=== PATIENT | female | born 2005 | race Caucasian/White ===

== ENCOUNTER 2024-09-16 11:24 | Emergency (ER) | payer MEDICAID, SELFPAY ==
[2024-09-16 11:49] VITALS: BP 136/81; PULSE 99; RESP 18; TEMP 36.9; O2SAT 100; BMI 16.1
--- NOTE | 2024-09-16 11:51 | XR_ITS ---
Examination: Abdomen sonogram, Limited Date and time of exam: September 16, 2024 1313 hours INDICATIONS: Epigastric pain today with fever Technique: Real-time middleton scale transabdominal sonographic images of the upper abdomen obtained. Findings: 6 mm, 7 mm gallstones Contracted gallbladder gallbladder wall 0.2 cm Common bile duct 0.4 exam Pancreatic head 1.5 cm 13.5 cm no focal liver lesions Normal hepatopedal portal venous flow Patent IVC IMPRESSION: Cholelithiasis, negative for cholecystitis
--- NOTE | 2024-09-16 11:51 | XR_ITS ---
Examination: Abdomen AP single view Technique: AP portable supine abdomen, single view Exam date and time: September 16, 2024 1248 hours INDICATIONS: Onset abdominal pain today. FINDINGS: Moderate to large amounts of stool throughout the colon No obstruction No free air IMPRESSION: Moderate to large amounts of stool throughout the colon
--- NOTE | 2024-09-16 11:51 | PD.EDRME ---
Rapid Medical Screening Exam RME Arrival date/time: 09/16/24 11:24 19-year-old female presents to the emergency department complains of abdominal pain Chief Complaint: Abdominal Pain Vital signs: Vital Signs Respiratory Rate 18 09/16/24 11:49 Oxygen Delivery Method Room Air 09/16/24 11:49
[2024-09-16 12:36] LABS: Basophils % (Auto) 0 % (0-2.5); Eosinophils # (Auto) 0.2 Thou/mm3 (0.0-0.5); Eosinophils % (Auto) 2 % (0-10); Hematocrit 40.5 % (36.0-46.0); Hemoglobin 13.2 g/dL (12.0-16.0); Immature Granulocytes % (Auto) 0 % (0-0); Immature Granulocytes Auto 0.01 Thou/mm3 (0.00-0.00); Lymphocytes # (Auto) 2.7 Thou/mm3 (1.0-4.8); Lymphocytes % (Auto) 37 % (10-50); Mean Corpuscular HGB Conc 32.6 g/dl (31.0-37.0); Mean Corpuscular Hemoglobin 30.3 pg (25.0-35.0); Mean Corpuscular Volume 93 fL (80-100); Monocytes # (Auto) 0.5 Thou/mm3 (0.0-0.8); Monocytes % (Auto) 6 % (0-12); Neutrophils # (Auto) 3.9 Thou/mm3 (1.8-7.7); Neutrophils % (Auto) 54 % (37-80); Nucleated Red Blood Cell % 0 /100 WBC (0); Platelet Count 403 Thou/mm3 (140-440); RDW Standard Deviation 43.4 fL (36.4-46.3); Red Blood Count 4.36 Miln/mm3 (4.00-5.20); White Blood Count 7.3 Thou/mm3 (4.5-11.0)
[2024-09-16 12:56] LABS: Alanine Aminotransferase 20 U/L (10-49); Albumin, Serum 4.5 gm/dL (3.5-5.0); Albumin/Globulin Ratio 1.6 (1.2-2.2); Alkaline Phosphatase 63 U/L (46-116); Anion Gap 10 (7-16); Aspartate Amino Transferase 17 U/L (0-34); BUN/Creatinine Ratio 10 Ratio (12-20); Bilirubin,Total 1.2 mg/dL (0.3-1.2); Blood Urea Nitrogen 7 mg/dL (9-23); Calcium 9.4 mg/dL (8.3-10.6); Calcium (Corrected) 9.4 mg/dL (8.5-10.1); Carbon Dioxide 24.5 mMol/L (20.0-31.0); Chloride 106 mMol/L (98-107); Creatinine (Component) 0.7 mg/dL (0.6-1.3); Estimated Creatinine Clearance 91.8 mL/min (>60); Globulin 2.9 gm/dL (2.3-3.5); Glucose 83 mg/dL (74-106); Lipase 36 U/L (12-53); Osmolality,Calculated 276 (275-295); Potassium 3.7 mMol/L (3.4-5.1); Sodium 140 mMol/L (136-145); Total Protein 7.4 gm/dL (5.7-8.2); eGFR > 60 See Note
[2024-09-16 13:09] LABS: Collection Type, Urine Clean Catch
[2024-09-16 13:19] LABS: HCG Qualitative,Urine Negative
[2024-09-16 13:28] LABS: Bacteria,Urine Rare; Bilirubin,Urine Negative (Negative); Blood,Urine Negative (Negative); Clarity,Urine Clear (Clear/Hazy); Color,Urine Lt-Yellow (Lt Yel-Yel); Culture Indicated,Urine Not Indicated; Glucose, Urine Negative (Negative); Ketones,Urine Negative (Negative); Leukocyte Esterase,Urine Negative (Negative); Nitrite,Urine Negative (Negative); PH,Urine 6.5 (5.0-7.0); Protein,Urine Negative (Neg - Trace); RBC,Urine 2 /hpf (0-3); Specific Gravity,Urine 1.017 (1.001-1.035); Squamous Epithelial Cell,Urine 5 /hpf (0-5); Urobilinogen,Urine Negative mg/dL (0.0-1.0); WBC,Urine < 1 /hpf (0-5)
--- NOTE | 2024-09-16 14:25 | EDNOTE_ITS ---
ED Abdominal Pain RME/HPI General Chief Complaint: Abdominal Pain Stated complaint: R) ABD PAIN RADIATING TO SHOULDER, SOB, FEVER Time seen by provider: 09/16/24 14:21 Arrival date/time: 09/16/24 11:24 19-year-old female presents to the emergency department complains of abdominal pain Limitations: no limitations RME / HPI RME / HPI narrative: 09/16/24 11:24 19-year-old female presents to the emergency department complains of abdominal pain Related Data Home Medications ?Medication ?Instructions ?Recorded ?Confirmed vits no.130-ferrous fum 1 tab PO DAILY 07/04/23 27 mg iron-folic acid 800 mcg tablet ( Vitamin) Previous Rx's ?Medication ?Instructions ?Recorded acetaminophen 300 mg-codeine 15 mg 1 tab PO Q12H PRN p ain #14 tabs 07/07/23 tablet acetaminophen 500 mg tablet 500 mg PO Q6H PRN pain #30 tabs 07/07/23 ibuprofen 800 mg tablet 800 mg PO Q8H PRN pain #30 t abs 07/07/23 docusate sodium 100 mg capsule 100 mg PO QDAY #20 caps 03/01/24 (Colace) docusate sodium 100 mg capsule 100 mg PO BID 7 days #1 4 caps 09/16/24 ibuprofen 600 mg tablet 600 mg PO Q6H #30 tabs 09/16 polyethylene glycol 3350 17 17 g PO QDAY 3 days #119 g carmelo 09/16/24 gram/dose oral powder (Miralax) Allergies Allergy/AdvReac Type Severity Reaction Status Date / Time No Known Allergies Allergy Verified 09/16/24 11:28 Review of Systems Review of Systems Systems Reviewed: All systems reviewed, normal except as documented Constitutional Constitutional: Reports system reviewed and no additional complaints, except as documented, Denies fever(s) and Denies headache(s) Eyes Eyes: Reports system reviewed and no additional complaints, except as documented and Denies blurry vision ENT Ears, Nose, Mouth, and Throat: Reports system reviewed and no additional complaints, except as documented, Denies headache(s), Denies nasal congestion and Denies nasal discharge Cardiovascular Cardiovascular: Reports system reviewed and no additional complaints, except as documented, Denies chest pain and Denies dyspnea Respiratory Respiratory: Reports system reviewed and no additional complaints, except as d ocumented, Denies chest congestion, Denies cough and Denies dyspnea Gastrointestinal Gastrointestinal: Reports system reviewed and no additional complaints, except as documented and Reports abdominal pain Integumentary/Breasts Skin/Breast: Reports system reviewed and no additional complaints, except as documented and Denies rash Neurologic Neurologic: Reports system reviewed and no additional complaints, except as documented, Reports as per HPI and Denies headache(s) Past Medical History Past Medical History NEUROLOGIC: Negative Neurological Disorders CARDIAC: Negative Cardiac Disorders or Congestive Heart Failure RESPIRATORY: Negative Chronic Obstructive Pulmonary Disease (COPD) or Asthma GASTROINTESTINAL: Negative Gastrointestinal Disorders or Hepatitis GENITOURINARY: Positive Genitourinary Disorders (HX OF UTI.); Negative Renal Disease REPRODUCTIVE: Negative Genital Herpes, Gonorrhea or Syphilis MUSCULOSKELETAL: Negative Musculoskeletal Disorders ENDOCRINE: Negative Endocrine Disorders, Diabetes Mellitus Type 1 or Diabetes Mellitus Type 2 HEMATOLOGIC: Negative Blood Disorders, Anemia, Leukemia, Hemophilia, Thalassemia, Sickle Cell Disease or Clotting Problems PSYCHO/SOCIAL: Positive Anxiety (NO MEDS.) OTHER HISTORY: Positive Chicken Pox; Negative Hospitalization, Autoimmune Disease, Down Syndrome, Developmental Delay, Shingles, Falls, Blood Transfusions, Blood Transfusion Reaction, Anesthesia Reactions, Organ Transplant, Chemotherapy, Radiation Therapy, Hyperbaric Therapy, MRSA, VRSA, Vancomycin-Resistant Enterococci, Human Immunodeficiency Virus (HIV), Measles, Mumps, Rubella (Frisian Measles), Pertussis, Clostridium Difficile or Cancer Family History FAMILY HISTORY: Negative Family Psychiatric Problems, Family Respiratory Disorders, Family Cardiac Disorders, Family Gastrointestinal Problems, Family Cancer, Family Surgery or Family Anesthesia Reaction Surgical History SURGICAL: Negative Organ Transplant Social History SMOKING STATUS: Never smoker SECOND HAND EXPOSURE: No ED Exam General Limitations: Present no limitations General appearance: Present alert and in no apparent distress Head Head exam: Present atraumatic, normocephalic and normal inspection Eye Eye exam: Present normal appearance, PERRL and EOMI; Absent conjunctival injection ENT ENT exam: Present normal exam, normal oropharynx and mucous membranes moist Neck Neck exam: Present normal inspection, full ROM and trachea midline Chest Chest inspection: Present normal inspection and symmetric chest wall rise Respiratory Respiratory exam: Present normal lung sounds bilaterally; Absent respiratory distress or wheezes Cardiovascular Cardiovascular exam: Present regular rate, normal rhythm and normal heart sounds Abdominal Exam Abdominal exam: Present soft and normal bowel sounds; Absent distention, tenderness, guarding, rebound or rigidity Extremities Exam Extremities exam: Present normal inspection and full ROM Back Exam Back exam: Present normal inspection and full ROM Neurological Exam Neurological exam: Present alert, oriented X3 and CN II-XII intact Psychiatric Psychiatric exam: Present normal affect and normal mood Skin Skin exam: Present warm, dry, intact and normal color Course Quality Measures none Orders Category Date Time Status US gall bladder Stat Exams 09/16/24 11:51 Completed XR abdomen 1V Stat Exams 09/16/24 11:51 Completed CBC Stat Lab 09/16/24 11:56 Completed Comprehensive Metabolic Panel Stat Lab 09/16/24 11:56 Completed HCG Qualitative,Urine Stat Lab 09/16/24 12:48 Completed Lipase Stat Lab 09/16/24 11:56 Completed UA, C/S IF [Urinalysis, C/S if Indicated] Stat Lab 09/16/24 12:48 Completed Vital Signs Vital signs: Vital Signs Temperature 98.4 F 09/16/24 11:49 Pulse Rate 99 09/16/24 11:49 Respiratory Rate 18 09/16/24 11:49 Blood Pressure 136/81 H 09/16/24 11:49 Pulse Oximetry (%) 100 09/16/24 11:49 Oxygen Delivery Method Room Air 09/16/24 11:49 O2 saturation 100% r/ wnl Abdominal Pain MDM MDM Narrative MDM Narrative:: 19-year-old female presents to the emergency department complains of abdominal pain Clinically patient well-appearing patient does not appear ill or toxic Patient shares that she has been constipated. Lab work as well as ultrasound obtained and imaging x-ray of the abdomen X-ray of the abdomen obtained which confirms cholelithiasis without cholecystitis X-ray of the abdomen shows patient has constipation Patient struck to use fleets enema at home patient given a prescription for Dulcolax as well as MiraLAX Lab work unremarkable Patient discharged home in no distress to follow-up with primary care doctor in the next 24 to 48 hours and for any worsening symptoms to return to the ER immediately Patient data External records reviewed:: [facility] previous records Clinical information provided by:: patient Social determinants that could affect healthcare access:: none Patient has the following chronic illnesses:: See history How is presenting disease/condition affected by chronic disease/condition?: caused by Evaluation data The following diagnostics were reviewed and interpreted by me:: lab results and radiology exam(s) Lab and/or radiology exams considered but not ordered:: Labs radiology obtain Interpretation Summary: Reviewed by me Medications / Prescriptions Medications or Prescriptions considered but not ordered:: Given Medication administrations:: Given Consultations Consultation(s) initiated? (list below): No Diagnosis Differential diagnosis abdominal pain: abdominal pain, pancreatitis and small bowel obstruction Most likely diagnosis given after review of the tests above:: Abdominal pain Admission Indicated Admission indicated?: not indicated Admission Request Was there a request for admission?: No Disposition Plan Disposition Plan: Discharge Discharge Attestation Discharge Attestation: The patient and all family members were given an opportunity to ask questions and understood the discharge instructions. Discharge instructions specifically effects, indications for sooner follow up or return to the emergency department, and the expected course of current diagnosis. Patient condition: Stable Discharge Plan Plan Patient Disposition: HOME (Self Care) Disposition Comment: Stable Prescriptions/Referrals Prescriptions/Med Rec: New ibuprofen 600 mg tablet 600 mg PO Q6H Qty: 30 0RF docusate sodium 100 mg capsule 100 mg PO BID 7 Days Qty: 14 0RF polyethylene glycol 3350 [Miralax] 17 gram/dose powder 17 g PO QDAY 3 Days Qty: 119 0RF No Action acetaminophen-codeine 300-15 mg tablet 1 tab PO Q12H PRN (Reason: pain) Qty: 14 0RF ibuprofen 800 mg tablet 800 mg PO Q8H PRN (Reason: pain) Qty: 30 0RF acetaminophen 500 mg tablet 500 mg PO Q6H PRN (Reason: pain) Qty: 30 0RF Vitamin 27 mg iron- 800 mcg tablet 1 tab PO DAILY docusate sodium [Colace] 100 mg capsule 100 mg PO QDAY Qty: 20 0RF Referrals: No Primary/Family,Physician [Primary Care Provider] - In 1 week Problem List Clinical Impression: Constipation, Cholelithiasis Patient/Caregiver Discharge Instructions Education Materials: Treating Gallstones Additional Instructions: Please follow up with your primary care doctor in the next 24-48hrs for any worsening symptoms return here immediately Print Language: Belarusian Stand Alone Forms: Jesika Award Info., Patient Portal Info Letter PA/[employer] Supervising Physician PA/[employer] Supervising Physician: Dr. qiu
== END 2024-09-16 14:40 | disposition home or self-care (01) ==
PROVIDERS: Nurse Practitioner Primary Care; Emergency Provider Family Medicine
DX: K59.00 Constipation, unspecified (principal); K80.20 Calculus of gallbladder without cholecystitis without obstruction
CPT/HCPCS: 36415; 74018; 76705; 80053; 81001; 81025; 83690; 85025; 99284

== ENCOUNTER 2025-06-30 15:27 | Emergency (ER) | payer MEDICAID, SELFPAY ==
[2025-06-30 15:28] VITALS: BMI 19.2
[2025-06-30 15:36] VITALS: BP 103/64; PULSE 105; RESP 18; TEMP 37.6; O2SAT 98; BMI 19.2
--- NOTE | 2025-06-30 15:37 | PD.EDDENTL ---
ED Dental RME/HPI General Chief complaint: Dental/Oral/Throat Stated complaint: INFECTION TO THROAT X3DAYS Time Seen by Provider: 06/30/25 15:31 Arrival date/time: 06/30/25 15:27 20-year-old female presents to the Emergency Department for complaints of throat infection x 3 days patient reports pain with swallowing patient reports no chance of Limitations: no limitations Related Data Home Medications ?Medication ?Instructions ?Recorded ?Confirmed vits no.130-ferrous fum 1 tab PO DAILY 07/03/23 07/04/23 27 mg iron-folic acid 800 mcg tablet ( Vitamin) Previous Rx's ?Medication ?Instructions ?Recorded acetaminophen 300 mg-codeine 15 mg 1 tab PO Q12H PRN pain #14 tabs 07/07/23 tablet acetaminophen 500 mg tablet 500 mg PO Q6H PRN pain #30 tabs 07/07/23 ibuprofen 800 mg tablet 800 mg PO Q8H PRN pain #30 tabs 07/07/23 docusate sodium 100 mg capsule 100 mg PO QDAY #20 caps 03/01/24 (Colace) ibuprofen 600 mg tablet 600 mg PO Q6H #30 tabs 09/16/24 amoxicillin 875 mg-potassium 1 tab PO BID 10 days #20 tabs 06/30/25 clavulanate 125 mg tablet ibuprofen 600 mg tablet 600 mg PO Q6H #30 tabs 06/30/25 Allergies Allergy/AdvReac Type Severity Reaction Status Date / Time No Known Allergies Allergy Verified 06/30/25 15:31 Review of Systems Review of Systems Systems Reviewed: All systems reviewed, normal except as documented Constitutional Constitutional: Reports system reviewed and no additional complaints, except as documented, Denies fever(s) and Denies headache(s) Eyes Eyes: Reports system reviewed and no additional complaints, except as documented and Denies blurry vision ENT Ears, Nose, Mouth, and Throat: Reports system reviewed and no additional complaints, except as documented, Denies headache(s), Denies nasal congestion, Denies nasal discharge and Reports sore throat Cardiovascular Cardiovascular: Reports system reviewed and no additional complaints, except as documented, Denies chest pain and Denies dyspnea Respiratory Respiratory: Reports system reviewed and no additional complaints, except as documented, Denies chest congestion, Denies cough and Denies dyspnea Gastrointestinal Gastrointestinal: Reports system reviewed and no additional complaints, except as documented and Denies abdominal pain Integumentary/Breasts Skin/Breast: Reports system reviewed and no additional complaints, except as documented and Denies rash Neurologic Neurologic: Reports system reviewed and no additional complaints, except as documented, Reports as per HPI and Denies headache(s) ED Exam General Limitations: Present no limitations General appearance: Present alert and in no apparent distress Head Head exam: Present atraumatic, normocephalic and normal inspection Eye Eye exam: Present normal appearance, PERRL and EOMI ENT ENT exam: Present mucous membranes moist Expanded ENT Exam Throat exam: Present tonsillar erythema, tonsillomegaly and tonsillar exudate; Absent R peritonsillar mass, L peritonsillar mass or muffled voice Neck Neck exam: Present normal inspection, full ROM and trachea midline Chest Chest inspection: Present normal inspection and symmetric chest wall rise Respiratory Respiratory exam: Present normal lung sounds bilaterally Cardiovascular Cardiovascular exam: Present regular rate, normal rhythm and normal heart sounds Abdominal Exam Abdominal exam: Present soft and normal bowel sounds Extremities Exam Extremities exam: Present normal inspection and full ROM Back Exam Back exam: Present normal inspection and full ROM Neurological Exam Neurological exam: Present alert, oriented X3 and CN II-XII intact Psychiatric Psychiatric exam: Present normal affect and normal mood Skin Skin exam: Present warm, dry, intact and normal color Course Quality Measures none Orders Category Date Time Status Ibuprofen Tab [Motrin Tab] Med 06/30/25 15:37 Discontinued 600 mg PO X1 ONE Lidocaine 1% Vial 20 ml [Xylocaine 1% 20 ML] Med 06/30/25 15:37 Discontinued 2.1 ml INFL X1 ONE cefTRIAXone [Rocephin] Med 06/30/25 15:37 Discontinued 1,000 mg IM X1 ONE dexAMETHasone INJ [Decadron Inj] Med 06/30/25 15:37 Discontinued 10 mg PO X1 ONE Vital Signs Vital signs: Vital Signs Temperature 99.6 F 06/30/25 15:36 Pulse Rate 105 H 06/30/25 15:36 Respiratory Rate 18 06/30/25 15:36 Blood Pressure 103/64 06/30/25 15:36 Pulse Oximetry (%) 98 06/30/25 15:36 Oxygen Delivery Method Room Air 06/30/25 15:36 O2 saturation 98% room air with normal limits Dental / Oral MDM Narrative MDM Narrative:: 20-year-old female presents to the Emergency Department for complaints of throat infection x 3 days patient reports pain with swallowing patient reports no chance of On exam well-appearing does not appear ill or toxic no acute distress Exam patient is no trismus no hoarseness of voice no evidence of peritonsillar abscess Tender hide consistent with strep throat Patient given Rocephin ibuprofen and dexamethasone here Patient discharged home in no distress to follow-up with primary care doctor in the next 24 to 48 hours and for any worsening symptoms to return to the ER immediately Patient data External records reviewed:: [facility] previous records Clinical information provided by:: patient Social determinants that could affect healthcare access:: none Patient has the following chronic illnesses:: None How is presenting disease/condition affected by chronic disease/condition?: no chronic disease Evaluation data The following diagnostics were reviewed and interpreted by me:: other (specify) Lab and/or radiology exams considered but not ordered:: Considered not ordered Interpretation Summary: N/A Medications / Prescriptions Medications or Prescriptions considered but not ordered:: Given Medication administrations:: Medication Administration History Discontinued Medications Ceftriaxone Sodium (Ceftriaxone Sod Inj 1,000 Mg Vial) 1,000 mg IM X1 ONE Stop: 06/30/25 15:38 Last Admin: 06/30/25 15:59 Dose: 1,000 mg Documented By: Dexamethasone Sodium Phosphate (Dexamethasone Sod Phos Inj 10 Mg/Ml Vial) 10 mg PO X1 ONE Stop: 06/30/25 15:38 Last Admin: 06/30/25 15:55 Dose: 10 mg Documented By: Comments: provider ok's to give po Ibuprofen (Ibuprofen Tab 600 Mg Tablet) 600 mg PO X1 ONE Stop: 06/30/25 15:38 Last Admin: 06/30/25 15:55 Dose: 600 mg Documented By: Lidocaine HCl (Lidocaine Hcl 1% 20 Ml Vial) 2.1 ml INFL X1 ONE Stop: 06/30/25 15:38 Last Admin: 06/30/25 15:59 Dose: 2.1 ml Documented By: Given Consultations Consultation(s) initiated? (list below): No Diagnosis Dental Differential Diagnosis: other (Viral pharyngitis, streptococcal pharyngitis) Most likely diagnosis given after review of the tests above:: Pharyngitis Admission Indicated Admission indicated?: not indicated Admission Request Was there a request for admission?: No Disposition Plan Disposition Plan: Discharge Discharge Attestation Discharge Attestation: The patient and all family members were given an opportunity to ask questions and understood the discharge instructions. Discharge instructions specifically effects, indications for sooner follow up or return to the emergency department, and the expected course of current diagnosis. Patient condition: Stable Discharge Plan Plan Patient Disposition: HOME (Self Care) Discharge Disposition comment: Stable Prescriptions/Referrals Prescriptions/Med Rec: New ibuprofen 600 mg tablet 600 mg PO Q6H Qty: 30 0RF amoxicillin-pot clavulanate 875-125 mg tablet 1 tab PO BID 10 Days Qty: 20 0RF No Action acetaminophen-codeine 300-15 mg tablet 1 tab PO Q12H PRN (Reason: pain) Qty: 14 0RF ibuprofen 800 mg tablet 800 mg PO Q8H PRN (Reason: pain) Qty: 30 0RF acetaminophen 500 mg tablet 500 mg PO Q6H PRN (Reason: pain) Qty: 30 0RF ibuprofen 600 mg tablet 600 mg PO Q6H Qty: 30 0RF Vitamin 27 mg iron- 800 mcg tablet 1 tab PO DAILY docusate sodium [Colace] 100 mg capsule 100 mg PO QDAY Qty: 20 0RF Problem List Clinical Impression: Acute streptococcal pharyngitis Patient/Caregiver Discharge Instructions Education Materials: ED Pharyngitis, Strep (Presumed) Additional Instructions: Please follow up with your primary care doctor in the next 24-48hrs for any worsening symptoms return here immediately Print Language: Turkmen Stand Alone Forms: Jesika Award Info., Work/School Release, Patient Portal Info Letter PA/INTERNAL AUDIT MANAGER Supervising Physician PA/GARRETT Supervising Physician: dr field
[2025-06-30] MEDS: IBUPROFEN TAB 600 MG TABLET PO (15:55)
[2025-06-30] MEDS: cefTRIAXone SOD INJ 1,000 MG VIAL 1000 MG IM (15:59)
[2025-06-30] MEDS: LIDOCAINE HCL 1% 20 ML VIAL 2.1 ML INFL (15:59)
== END 2025-06-30 16:15 | disposition home or self-care (01) ==
LOC: SERX 16:08
PROVIDERS: Emergency Provider Emergency Medicine
DX: J02.0 Streptococcal pharyngitis (principal)
CPT/HCPCS: 96372; 99282; J0696; J1100; J3490; A9270